=== PATIENT | female | born 1990 | race Two or more races ===

== ENCOUNTER 2016-09-19 14:44 | Emergency (ER) | payer OTHER ==
[2016-09-19] MEDS ORDERED: IOPAMIDOL 300 (61%) 100 ML VIAL IV ONE (14:45)
[2016-09-19 15:35] LABS: URINE BILIRUBIN NEGATIVE (NEGATIVE); URINE BLOOD NEGATIVE (NEGATIVE); URINE GLUCOSE (UA) NEGATIVE (NEGATIVE); URINE LEUKOCYTE ESTERASE NEGATIVE (NEGATIVE); URINE NITRITE NEGATIVE (NEGATIVE); URINE PROTEIN NEGATIVE (NEGATIVE); URINE UROBILINOGEN NORMAL (0-1 mg/dl)
[2016-09-19 15:46] LABS: HCG,QUALITATIVE URINE NEGATIVE; URINE APPEARANCE CLEAR; URINE COLOR STRAW
[2016-09-19 16:46] LABS: ABSOLUTE NEUTROPHIL COUNT 12.3 K/mm3 (1.8-7.7); BASO # 0.1 K/mm3 (0.0-0.2); BASO % 0.4 % (0.2-1.0); EOS # 0.1 (0.0-0.5); EOS % 0.8 % (0.9-2.9); HEMOGLOBIN 14.3 gm/l (12.0-16.0); IMM NEUT # 0.1 K/mm3 (0-0.2); IMM NEUT% 0.4 % (0-1); LYMPH # 3.1 (1.0-4.8); LYMPH % 18.8 % (15-45); MEAN CELL VOLUME 87.7 fl (81.0-99.0); MEAN CORPUSCULAR HEMOGLOBIN 31.4 pg (27.0-31.0); MEAN CORPUSCULAR HGB CONC 35.8 g/dl (33.0-37.0); MEAN PLATELET VOLUME 10.9 fl (7.4-10.4); MONO # 0.6 (0.0-0.8); MONO % 3.7 % (4-12); NEUT % 75.9 % (43-75); PLATELET COUNT 239 K/mm3 (130-400)
[2016-09-19 16:58] LABS: ALB/GLOB RATIO 1.4 (>1.0); ALBUMIN 4.5 gm/dL (3.5-5.7); CALCIUM 9.9 mg/dL (8.6-10.3)
--- NOTE | 2016-09-19 17:43 | CT ---
Exam: CT abdomen and pelvis with contrast COMPARISON: None INDICATION: Rectal pain, mass on exam. TECHNIQUE: CT examination of the abdomen and pelvis was obtained following the administration of 100 minus major injury is contrast. FINDINGS: There is a 3.1 x 4.0 x 3.6 cm well-circumscribed, smooth marginated, hypodense mass with a thin rim of rim enhancement located posterior uterus towards the right side, most compatible with an ovarian/adnexal lesion. There is a small, ill-defined focus of high density material to the left of this lesion concerning for acute blood products. There is an additional small amount of free fluid about the uterus, within physiologic range. The bowel, specifically the rectum, are unremarkable and there is no bowel obstruction or free air. The appendix is normal. Urinary bladder is within normal limits. The liver, spleen, pancreas, kidneys, adrenal glands and gallbladder are unremarkable. Lung bases are clear. No worrisome osseous abnormalities identified. IMPRESSION: 4 cm lesion posterior to the uterus just to the right of midline, presumably ovarian in origin, which is associated with adjacent dependent hyperdense material concerning for hemorrhage. Ruptured ovarian cyst with associated hemorrhage is favored. Ensure patient's beta hCG is 0. Message left for Dr. Vinson at 1736 hours 09/19/2016.
[2016-09-19] MEDS ORDERED: HYDROCODONE/ACETAMINOPHEN 5/325MG TABLET ONE (17:59)
[2016-09-22 17:33] LABS: CHLAMYDIA BD Negative (Negative); N.GONORRHOEAE BD Negative (Negative); SOURCE Cervix/Endocrvx (())
== END 2016-09-19 18:22 | disposition home or self-care (01) ==
LOC: ED 14:44
DX: N83.201 Unspecified ovarian cyst, right side (principal); K64.9 Unspecified hemorrhoids
CPT/HCPCS: 87491; 87591; 81025; 85025; 80053; 81003; 74177; 99284 ×2; Q9967; A9270